=== PATIENT | female | born 1995 | race Caucasian/White ===

== ENCOUNTER 2017-01-10 14:02 | Emergency (ER) | payer BC, OTHER ==
[2017-01-10 14:20] VITALS: BP 111/69
--- NOTE | 2017-01-10 14:45 | UC ---
Palpitation/Dysrhythmia HP - HPI Summary HPI Summary: The patient comes in today for: 1. Fatigue, "a little bit weak," "feeling a fluttering in my chest,": Onset: 2 days ago. Palliative/provocative: If she bends down or stands up, fluttering gets worse. Sudden movement makes it worse. Sitting still, she will get it, but not as bad. Quality: Fluttering. Region: Chest Severity: 0/10 in terms of pain. Time: Flutterings last "just a couple of seconds." Associated symptoms: Chest pain, dyspnea, near-syncope--not present with the flutterings. Previous heart disease: None. Caffeine intake: Usual intake is about 1 small coffee a day. Decongestants: None. Energy drinks: None. * - History of Current Complaint Chief Complaint: UCGeneralIllness Stated Complaint: LIGHT HEADNESS,CHEST FLUTTER Time Seen by Provider: 01/10/17 14:37 Hx Obtained From: Patient Hx Last Menstrual Period: unknown, IUD, Mirena ?: No - Allergy/Home Medications Allergies/Adverse Reactions: Allergies Allergy/AdvReac Type Severity Reaction Status Date / Time No Known Allergies Allergy Verified 01/10/17 14:20 Home Medications: Home Medications Docusate Sodium [Colace] 100 mg PO DAILY PRN 01/10/17 [History Confirmed ] Linaclotide (NF) [Linzess (NF)] 145 mcg PO DAILY PRN 01/10/17 [History Confirmed 01/10/17] Polyethylene Glycol 3350* [Miralax*] 1 packet PO DAILY PRN 01/10/17 [History Confirmed 01/10/17] Rizatriptan (NF) [Maxalt(NF)] 10 mg PO BID 01/10/17 [History Confirmed 01/10/17] Sertraline HCl [Zoloft] 50 mg PO 01/10/17 [History] Spironolactone [Aldactone 50 MG-] 200 mg PO DAILY 01/10/17 [History Confirmed ] Zonisamide 100 mg PO DAILY 01/10/17 [History Confirmed 01/10/17] PMH/Surg Hx/FS Hx/Imm Hx Previously Healthy: No - "on metformin for hypoglcemia," allergies, constipation , hair loss, Endocrine History Of: Denies: Diabetes, Thyroid Disease, Hyperthyroidism, Hypothyroidism, Dyslipidemia Cardiovascular History Of: Denies: Cardiac Disorders, Hypertension, Pacemaker/ICD, Myocardial Infarction , Congestive Heart Failure, Atrial Fibrillation, Deep Vein Thrombosis, Bleeding Disorders Respiratory History Of: Reports: Asthma - She will use xopenex as needed, but Singular usually controls. Denies: COPD, Bronchitis, Pneumonia, Pulmonary Embolism GI/ History Of: Denies: Gastroesophageal Reflux, Ulcer, Gastrointestinal Bleed, Gall Bladder Disease, Kidney Stones, Diverticulitis, Renal Disease, Urosepsis Neurological History Of: Reports: Migraine Denies: TIA, CVA, Dementia, Seizures Psychological History Of: Reports: Anxiety - She is also on Zoloft (50 mg/day) started 5 months ago. Denies: Depression, Bipolar Disorder, Schizophrenia, Post Traumatic Stress Disorder Cancer History Of: Denies: Lung Cancer, Colorectal Cancer - Surgical History Surgical History: Yes Surgery Procedure, Year, and Place: TUBES IN EARS CHILD; POLYP REMOVED FROM THROAT-NO CLIPS, wisdom teeth extraction - Family History Known Family History: Positive: Cardiac Disease, Hypertension - Social History Occupation: Employed Full-time Alcohol Use: Occasionally Substance Use Type: None Smoking Status (MU): Never Smoked Tobacco Review of Systems Constitutional: Negative Skin: Negative Eyes: Negative ENT: Negative Respiratory: Negative Cardiovascular: Palpitations Gastrointestinal: Negative All Other Systems Reviewed And Are Negative: Yes Physical Exam Triage Information Reviewed: Yes Appearance: Well-Appearing, No Pain Distress, Well-Nourished Vital Signs: Initial Vital Signs Temp 98.2 F 01/10/17 14:12 Pulse 78 01/10/17 14:12 Resp 16 01/10/17 14:12 BP 111/69 01/10/17 14:12 Pulse Ox 100 01/10/17 14:12 Vital Signs Reviewed: Yes Eyes: Positive: Conjunctiva Clear. Negative: Discharge ENT: Positive: Hearing grossly normal. Negative: Pharyngeal erythema, Nasal congestion, Nasal drainage, Tonsillar swelling, Tonsillar exudate Dental: Negative: Gross Decay/Caries @, Dental Fracture @ Neck: Positive: Supple, Nontender, No Lymphadenopathy, Other: - No thyromegally. Respiratory: Positive: Chest non-tender, Lungs clear, No respiratory distress, No accessory muscle use. Negative: Crackles, Wheezing Cardiovascular: Positive: RRR, No Murmur, Pulses Normal Abdomen Description: Positive: Nontender, No Organomegaly, Soft. Negative: Distended, Guarding Musculoskeletal: Positive: Strength Intact, ROM Intact Neurological: Positive: Alert, Muscle Tone Normal Psychological: Positive: Age Appropriate Behavior, Consolable Skin: Negative: rashes, breakdown Diagnostics - Laboratory Diagnostic Studies Completed/Ordered: EKG: Rate: 71. Rhythm: sinus. Ectopy: none. Acute changes: None. Palpitations Course/Dx - Course Course Of Treatment: The patient was told of the EKG reading. She was told that I did not see any worrisome findings. She was encouraged to follow up with her primary care provider (or gis technician) if she wanted more of a work up than what we were able to do today. She said that she was not worried. She had called her primary care provider's office and they were not able to get her in, so she called us since they told her that with her complaint, they did not want her to not be seen between now and the time she is able to make in to see them. - Differential Dx/Diagnosis Provider Diagnoses: Palpitations Discharge - Discharge Plan Condition: Stable Disposition: HOME Patient Education Materials: Palpitations (ED) Additional Instructions: Please see your primary care provider in about one to two weeks to see how well you are doing. If you get worse, please be seen sooner.
== END 2017-01-10 15:35 | disposition home or self-care (01) ==
LOC: UCCORT 14:02
DX: R00.2 Palpitations (principal); R53.83 Other fatigue; J45.909 Unspecified asthma, uncomplicated
CPT/HCPCS: 93005; 99211; G0463

== ENCOUNTER 2018-11-20 18:34 | Emergency (ER) | payer OTHER ==
--- OUTSIDE RECORDS SUMMARY | 2018-11-20 20:04 | XMS REPORT | Continuity of Care Document ---
:1995 External Reference #:[id number] Author Name Amy Zhang Care Team Providers Name Role Phone Rekha Lopez MD Care Team Information Kitchen And Bath Designer Unavailable Rekha Lopez MD Primary Care Physician Unavailable Payers Date Identification Numbers Payment Provider Subscriber Effective: 2015 Policy Number: [id number] [employer] PayID: [id number] [address] [place] [address] Effective: 2014 Policy Number: [id number] [facility] [employer] Expires: 2015 PayID: [id number] [address] [address] [place] [address] Effective: 2014 Policy Number: [id number] [facility] [employer] Expires: 2015 PayID: [id number] [address] [address] [place] [address] Effective: 2014 Policy Number: [id number] [facility] [employer] Expires: 2015 PayID: [id number] [address] [address] [place] [address] Effective: 2014 Policy Number: [id number] [facility] [employer] Expires: 2015 PayID: [id number] [address] [address] [place] [address] Advance Directives Description No Information Available Problems Date Description Provider Status Onset: 09/20/2017 Chronic allergic conjunctivitis Yodit Urrutia, Active RPA-C Onset: 08/05/2016 Mild intermittent asthma Yodit Urrutia, Active RPA-C Onset: 10/03/2015 Cow's milk protein sensitivity Yodit Urrutia Active RPA-C Onset: 10/03/2015 Allergic urticaria Yodit Robisonacher, Active RPA-C Onset: 07/11/2015 Moderate persistent asthma, Yodit Bhagatr, Active uncomplicated RPA-C Onset: 07/11/2015 Idiopathic urticaria Yodit Robisonacher, Active RPA-C Onset: 07/11/2015 Posterior rhinorrhea Yodit Robisonacher, Active RPA-C Onset: 07/11/2015 Allergic rhinitis Yodit Robisonacher, Active RPA-C Onset: 07/11/2015 Allergic rhinitis due to pollen Yodit Urrutia, Active RPA-C Family History Description No Information Available Social History Type Date Description Comments Sex Unknown Smoke-Free Home is smoke-free Pets Rabbit Tobacco Use Start: Unknown Never Smoked Cigarettes Tobacco Use Start: Unknown Patient has never smoked Smoking Status Reviewed: 09/20/17 Patient has never smoked Allergies, Adverse Reactions, Alerts Description No Known Drug Allergies Medications Medication Date Status Form Strength Qnty SIG Indications Ordering Provider [facility] Allergy 10/24 Active Capsules 10mg 30cap take 1 s capsule Alondra Tubbs MD by oral route as needed Singulair 10/21 Active Tablets 10mg 90tab Take one s tablet by Alondra Tubbs MD mouth daily in the evening. Epipen 2-Vish 08/08 Active Solution 0.3mg/0.3 2unit as Auto-Inject ML s directed Alondra Tubbs MD Xopenex HFA 07/11 Active Aerosol 45mcg/Act 1inha Inhale 2 J45.40 ler puffs Alondra Tubbs MD every 4 hours as needed Spironolactone Active Tablets 100mg Unknown /0000 Mirena (52 MG) Active IUD 20mcg/24H Unknown /0000 R Doxepin HCL Active Capsules 10mg 1 by Unknown /0000 mouth every day at night Pataday 09/20 Hx Solution 0.2% 1bott Instill H10.45 le one drop Alondra Tubbs MD - into both 10/24 eyes once daily as needed. Advair HFA 10/21 Hx Aerosol 230-21mcg 3unit 2 puff /Act s twice a Alondra Tubbs MD - day 08/05 Xyzal 10/21 Hx Tablets 5mg 90tab Take one s tablet po Alondra Tubbs MD - daily at 10/24 bedtime. Xolair 10/01 Hx Solution 150mg 2unit Inject Rec s 300 mg Alondra Tubbs MD - under the 01/28 every 4 weeks Advair HFA 07/11 Hx Aerosol 230-21mcg 1inha 2 J45.40 /Act ler inhalatio Alondra Tubbs MD - ns bid 10/21 Spironolactone Hx Tablets 100mg 2 by Unknown mouth - every day 01/28 Xyzal Hx Tablets 5mg 30tab 1 tab by s mouth Alondra Tubbs MD - every day 10/21 as needed Singulair Hx Tablets 10mg 30tab 10mg by s mouth Alondra Tubbs MD - daily at 10/21 bedtime Zonisamide Hx Capsules 100mg Unknown / - 09/19 Metformin HCL Hx Tablets 500mg Unknown / - 10/24 Nuvaring Hx Ring 0.12-0.01 Unknown /0000 5mg/24HR - 09/20 Maxalt / Hx Tablets 5mg prn / - 01/28 Optivar Hx Solution 0.05% 1 drop Unknown /0000 both eyes - twice a 01/28 day needed Ventolin HFA Hx Aerosol 108(90Bas inhale 2 Unknown /0000 e) puffs by - mcg/Act inhalatio 08/05 n route every 4 hours as needed for 99 days Alrex Hx Suspension 0.2% Unknown / - 08/05 Finasteride / Hx Unknown / - 09/19 Topiramate /00 Hx Tablets 100mg Unknown / - 10/24 Sertraline HCL Hx Tablets 100mg Take 1 Unknown /0000 Tablet By - Mouth 10/24 Day Medications Administered in Office Medication Date Status Form Strength Qnty SIG Indications Ordering Provider Chemotherpy 10/03/ Administered Injection Christopher Admin 2015 Alondra Tubbs MD Subcutaneous/ Im Non-Hormonal Anti-Neoplast ic Chemotherpy 10/03/ Administered Injection Christopher Admin 2015 Alondra Tubbs MD Subcutaneous/ Im Non-Hormonal Anti-Neoplast ic Injection 09/05/ Administered Injection Christopher Omalizumab 5 2015 Alondra Tubbs MD MG Chemotherpy 09/05/ Administered Injection Christopher Admin 2015 Alondra Tubbs MD Subcutaneous/ Im Non-Hormonal Anti-Neoplast ic Chemotherpy 09/05/ Administered Injection Christopher Admin 2015 Alondra Tubbs MD Subcutaneous/ Im Non-Hormonal Anti-Neoplast ic Chemotherpy 08/08/ Administered Injection Christopher Admin 2014 Alondra Tubbs MD Subcutaneous/ Im Non-Hormonal Anti-Neoplast ic Chemotherpy 08/08/ Administered Injection Christopher Admin 2014 Alondra Tubbs MD Subcutaneous/ Im Non-Hormonal Anti-Neoplast ic Immunizations Description No Information Available Vital Signs Date Vital Result Comment 10/24/2018 3:55pm BP Systolic 96 mmHg BP Diastolic 42 mmHg Height 62 inches 5'2" Weight 127.00 lb BMI (Body Mass Index) 23.2 kg/m2 Heart Rate 66 /min Respiratory Rate 18 /min O2 % BldC Oximetry 99 % 09/20/2017 1:22pm BP Systolic 106 mmHg BP Diastolic 62 mmHg Height 62 inches 5'2" Weight 127.00 lb BMI (Body Mass Index) 23.2 kg/m2 Heart Rate 88 /min Respiratory Rate 16 /min O2 % BldC Oximetry 98 % 08/05/2016 9:14am BP Systolic 118 mmHg BP Diastolic 64 mmHg Height 62 inches 5'2" Weight 121.00 lb BMI (Body Mass Index) 22.1 kg/m2 Heart Rate 100 /min Respiratory Rate 16 /min Body Temperature 97.6 F O2 % BldC Oximetry 100 % 01/29/2016 2:18pm BP Systolic 108 mmHg BP Diastolic 66 mmHg Height 62 inches 5'2" Weight 130.00 lb BMI (Body Mass Index) 23.8 kg/m2 Heart Rate 76 /min Respiratory Rate 14 /min 10/03/2015 1:42pm BP Systolic 100 mmHg BP Diastolic 68 mmHg Height 62 inches 5'2" Weight 125.00 lb BMI (Body Mass Index) 22.9 kg/m2 Heart Rate 76 /min Respiratory Rate 12 /min 07/11/2015 10:43am BP Systolic 124 mmHg BP Diastolic 79 mmHg Height 62 inches 5'2" Weight 130.00 lb BMI (Body Mass Index) 23.8 kg/m2 Heart Rate 93 /min Respiratory Rate 16 /min Results Description No Information Available Procedures Date Code Description Status 09/20/2017 84029 Nitric Oxide Gas Determination Completed 09/20/2017 50951 Bronchodilation Responsiveness Spirometry Pre/Post Completed Bronchodil Adm 08/05/2016 46127 Bronchodilation Responsiveness Spirometry Pre/Post Completed Bronchodil Adm 10/03/2015 02546 Chemotherpy Admin Subcutaneous/Im Non-Hormonal Completed Anti-Neoplastic 10/03/2015 67638 Chemotherpy Admin Subcutaneous/Im Non-Hormonal Completed Anti-Neoplastic 10/03/2015 44396 Spirometry Completed 09/05/2015 85402 Chemotherpy Admin Subcutaneous/Im Non-Hormonal Completed Anti-Neoplastic 09/05/2015 47797 Chemotherpy Admin Subcutaneous/Im Non-Hormonal Completed Anti-Neoplastic 09/05/2015 63616 Spirometry Completed 09/05/2015 36103 Spirometry Completed 08/08/2015 43416 Chemotherpy Admin Subcutaneous/Im Non-Hormonal Completed Anti-Neoplastic 08/08/2015 07219 Chemotherpy Admin Subcutaneous/Im Non-Hormonal Completed Anti-Neoplastic 08/08/2015 34064 Spirometry Completed 07/11/2015 90276 Bronchodilation Responsiveness Spirometry Pre/Post Completed Bronchodil Adm Encounters Type Date Location Provider Dx Diagnosis Office Visit 09/20/2017 Romaine Langford J30.1 Allergic rhinitis due 1:00p Fenstermacher, RPA-C to pollen J30.89 Other allergic rhinitis J45.20 Mild intermittent asthma, uncomplicated H10.45 Other chronic allergic conjunctivitis Office Visit 08/05/2016 9:00a Romaine Langford J45.20 Mild intermittent Fenstermacher, RPA-C asthma, uncomplicated J30.1 Allergic rhinitis due to pollen J30.89 Other allergic rhinitis Office Visit 01/29/2016 2:15p Romaine Langford Fenstermacher, J30.1 Allergic RPA-C rhinitis due to pollen J30.89 Other allergic rhinitis L50.0 Allergic urticaria J45.40 Moderate persistent asthma, uncomplicated Office Visit 10/03/2015 1:30p [place]arie Langford [place], J30.1 Allergic rhinitis RPA-C due to pollen J30.89 Other allergic rhinitis R09.82 Postnasal drip L50.0 Allergic urticaria J45.40 Moderate persistent asthma, uncomplicated Office Visit 07/11/2015 10:45a Jessica Langford [place], J30.1 Allergic rhinitis RPA-C due to pollen J30.89 Other allergic rhinitis J45.40 Moderate persistent asthma, uncomplicated R09.82 Postnasal drip L50.1 Idiopathic urticaria Plan of Treatment 09/20/2017 - Yodit MerrillRupinder Urrutia, RPA-CJ30.1 Allergic rhinitis due to pollenComments:Continue Xyzal as prescribed. I have suggested that Ritika takes Claritin in addition to Xyzal for breakthrough symptoms during the summer months. She does not tolerate nasal steroids and is not a good candidate for restarting immunotherapy due to history of multiple systemic allergic reactions.Follow up:1 year.J30.89 Other allergic rhinitisComments:Continue environmental controls for house dust and dust mites.Follow up:1 year.J45.20 Mild intermittent asthma, uncomplicatedComments:Asthma has been stable. Today's PFT is within normal limits. Exhaled nitric oxide level is 14ppb. Continue Singulair as prescribed. Continue Xopenex as needed for breakthrough asthma symptoms.Follow up:1 year - w/PFT and NIOXH10.45 Other chronic allergic conjunctivitisNew Medication:Pataday 0.2 % - Instill one drop into both eyes once daily as needed.Comments:I will renew prescription for Pataday eye drops to be used as needed for breakthrough eye allergy symptomsFollow up:1 year.
--- OUTSIDE RECORDS SUMMARY | 2018-11-20 20:04 | XMS REPORT | Continuity of Care Document ---
:1995 External Reference #:[id number] Author Name ALEJANDRA Santos Address [address] [place] [address] Care Team Providers Name Role Phone Melissa Ruano Care Team Information Top Ironer Unavailable Melissa Ruano Primary Care Physician Unavailable Payers Date Identification Numbers Payment Provider Subscriber Effective: 2015 Policy Number: [id number] [facility] Sesar [employer] Group Number: [id number] [address] PayID: [id number] [place] [address] Advance Directives Description No Information Available Problems Date Description Provider Status Onset: 05/14/2015 Migraine Rekha Lopez M.D. Active Onset: 05/15/2015 Impaired glucose tolerance test Rekha Lopez M.D. Active Onset: 05/15/2015 Alopecia Rekha Lopez M.D. Active Onset: 05/15/2015 Abnormal estradiol Rekha Lopez M.D. Active Onset: 05/15/2015 Decreased testosterone level Rekha Lopez M.D. Active Onset: 05/15/2015 Asthma Rekha Lopez M.D. Active Onset: 05/15/2015 Allergic rhinitis Rekha Lopez M.D. Active Onset: 04/12/2013 Malaise and fatigue Melissa Ruano M.D. Resolved Resolved: 05/14/2015 Onset: 04/12/2013 Headache Melissa Ruano M.D. Resolved Resolved: 05/14/2015 Family History Description No Information Available Social History Type Date Description Comments Sex Unknown Education part time student [employer]. nursing Lives With Mother Lives With Stepfather Lives With and step sister. 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 Tobacco Use Start: Unknown Never Smoked Cigarettes Tobacco Use Start: Unknown Patient has never smoked Exercise Type/Frequency Exercises regularly Exercise Type/Frequency [employer] - 4-5 times weekly. Allergies, Adverse Reactions, Alerts Description No Known Drug Allergies Medications Medication Date Status Form Strength Qnty SIG Indications Ordering Provider Wellbutrin SR 10/26 Active Tablets ER 100mg 90tab 1 by mouth F41.1 12HR s every day Kelly, [employer] Mirena (52 MG) 04/14 Active IUD 20mcg/24H 2015 R Kelly, [employer] Butalbital/Acet 04/14 Active Capsules 50-300-40 240ca 1-2 by aminophen/Caffe /2016 mg ps mouth Kelly, ine every 6 [employer] hours Naproxen 04/14 Active Tablets 500mg 60tab 1 by mouth R51 s twice a Kelly, day with [employer] food Lorazepam 04/14 Active Tablets 0.5mg 60tab 1 by mouth s twice a Kelly, day as [employer] needed anxiety Dulcolax 11/03 Active Suppository 10mg 24uni 1-2 per K59.01 ts rectum Kelly, daily if [employer] needed for severe constipati on Ondansetron HCL 09/01 Active Tablets 4mg 60tab 1 by mouth R11.0 s every 8 Kelly, hours as [employer] needed nausea Xyzal Active Tablets 5mg 90tab 1 po qd Unknown s Singulair Active Tablets 10mg 1 by mouth Unknown every day Rizatriptan Active Tablets 10mg 1 by mouth Unknown Benzo at beginning of headache. may repeat in two hours Xopenex HFA Active Aerosol 45mcg/Act 2 puffs Unknown four times a day as needed Spironolactone Active Tablets 100mg 180ta 1 tab by Latia Headley / bs mouth Marlon, twice a [employer] day Doxepin HCL Active Capsules 10mg take 1 Unknown /0000 capsules by mouth at bedtime Lamictal 02/10 Hx Tablets 25mg 60tab 2 by mouth F34.1 s every day [facility], - [facility] 10/26 Augmentin 11/18 Hx Tablets 875-125mg 20tab 1 po bid 462 s with Kelly, - yogurt or [facility] 02/10 kefir. Sertraline HCL 11/02 Hx Tablets 25mg 90tab 1 by mouth F41.1 s every day Kelly, - [employer] 02/10 F34.1 Cheratussin ac 11/02/2017 Hx Syrup 100-10mg/5ML 118ml 5-10 mL by J06.9 Praveena - mouth every [facility], 02/10/2018 night at [facility] bedtime as needed cough Diflucan 10/29/2017 Hx Tablets 200mg 2tabs take one by B37.3 Latia C. - mouth at [place], 11/02/2017 first signs [employer] of yeast infection, repeat dose after 4 days. Sertraline HCL 04/14/2017 Hx Tablets 100mg 90tabs 1 by mouth F41.1 Praveena - every day [facility], 11/02/2017 [employer] Linzess 09/01/2016 Hx Capsules 145mcg 1 po daily, K59.01 Praveena - samples [facility], 11/02/2017 [employer] Sertraline HCL 07/28/2016 Hx Tablets 50mg 90tabs 1 by mouth F41.1 Praveena - every day Kelly, 04/14/2017 [employer] Macrobid 02/17/2016 Hx Capsules 100mg 10caps 1 tab by Praveena - mouth twice [facility], 07/28/2016 a day x [employer] 5days Fluconazole 01/07/2016 Hx Tablets 150mg 2tabs 1 by mouth N77.1 Maria Guadalupe - ; decemberigne, 01/10/2016 repeat in Afnp-C 5-7 days Terconazole 01/07/2016 Hx Cream 0.4% 45gm 1 N77.1 Maria Guadalupe - applicatorf oYvanny, 01/14/2016 ul hs x 7 [facility] nights Macrodantin 12/23/2015 Hx Capsules 100mg 10caps 1 by mouth N39.0 Rekha - twice a day [place], 01/07/2016 x 5 days M.D. Macrobid 12/23/2015 Hx Capsules 100mg 10caps 1 tab by Rekha - mouth twice [place], 01/07/2016 a day x M.D. 5days Triamcinolone 12/03/2015 Hx Cream 0.5% samples, R21 Praveena Acetonide - twice a day Kelly, 07/28/2016 [employer] Macrodantin 10/14/2015 Hx Capsules 100mg 10caps 1 by mouth N39.0 Praveena - twice a day Kelly, 11/19/2015 x 5 days [employer] Pyridium 10/14/2015 Hx Tablets 200mg 30tabs 1 by mouth N39.0 Praveena - three times Kelly, 11/19/2015 a day [employer] Macrodantin 09/17/2015 Hx Capsules 100mg 10caps 1 by mouth N39.0 Praveena - twice a day [facility], 10/07/2015 x 5 days [employer] Diflucan 07/22/2015 Hx Tablets 150mg 1tabs 1 by mouth B37.3 Dominique - x1 [facility], 07/23/2015 Afnp-C Nuvaring 06/02/2015 Hx Ring 0.12-0.015mg/ 12units use as Z30.09 Ronny Faulkner - 24HR directed [place], 11/03/2016 M.D. Metformin HCL 05/15/2015 Hx Tablets 500mg 90tabs 1 by mouth R73.02 Ronny Faulkner ER - ER 24HR tab daily [place], 10/26/2018 M.D. Must Eat Small 04/12/2013 Hx 780.79 Melissa Jacques Amounts Of - Bindu, Protein During 12/03/2015 M.D. The Day. Augmentin 10/12/2011 Hx Tablets 875-125mg 20tabs 1 po bid 462 Melissa Jacques - with yogurt Bindu, 11/12/2011 or kefir. M.D. Ventolin HFA 10/06/2011 Hx Aerosol 108(90Base) 1units 2 puffs Abena - mcg/ac qd-qid Harmeet 07/17/2015 [employer] Flexeril 10/06/2011 Hx Tablets 10mg 30tabs 1 po q hs 339.10 Abena - prn muscle Harmeet, 01/05/2013 spasm [employer] Fioricet 10/06/2011 Hx Tablets 50-325-40mg 20tabs 1 qd prn 339.10 Abena - headache [place], 01/05/2013 [employer] Physical 10/06/2011 Hx evaluate 339.10 Abena Therapy - and treat Harmeet, 04/18/2012 cervical [employer] strain Nuvaring Hx Ring 0.12-0.015mg/ 1units use as Melissa Jacques - 24HR directed Bindu, 05/15/2015 Oskar Doryx Hx Tablets 150mg Unknown - DR 04/18/2012 Spironolactone Hx Tablets 50mg 4 po qd Unknown - 01/07/2016 Clarinex Hx Tablets 5mg 7tabs 1 po qd Unknown - 04/12/2013 Amitriptyline Hx Tablets 25mg 1 po q hs Unknown HCL - 05/15/2015 Dulera Hx Aerosol 200-5mcg/Act sample 2 puff bid Unknown - 05/15/2015 Qnasl Hx Aerosol 80mcg/Act 3units 1spray/nost Unknown - ril qd-bid 05/15/2015 Zonisamide Hx Capsules 100mg 1 po qd Unknown - 11/02/2017 Jolessa Hx Tablets 0.15-0.03mg use as Unknown - instructed 09/17/2015 by prescriber Adv Diskus Hx Aerosol 500-50mcg/Dos inhale one Unknown - e dose by 08/31/2016 mouth twice daily Xolair Hx Solution 150mg 2 shots Unknown - Rec once a 07/28/2016 month- Dr. Tubbs Propecia Hx Tablets 1mg once daily Unknown - 08/31/2016 Ibuprofen Hx Capsules 200mg as needed Unknown - 11/02/2017 Topiramate Hx Tablets 100mg qd po Unknown - 10/26/2018 Medications Administered in Office Medication Date Status Form Strength Qnty SIG Indications Ordering Provider Brief Administered Injection Praveena Emotional/Beh 018 ALEJANDRA Mendoza av Assessment W/ Scoring Doc Per Standard Inst Brief Administered Injection Praveena Emotional/Beh 017 TU MendozaP av Assessment W/ Scoring Doc Per Standard Inst Immunizations CPT Code Status Date Vaccine Lot # [id number] Given 11/03/2016 Tdap Tetanus, W Pertussis [id number] 85002 Given 06/16/2016 Influenza Vac, [place] [address] Given 05/15/2015 Influenza Vac, Quadrivalent, Slit Virus, Im [id number] 20932 Given 07/16/2013 DO Not Use Split Influenza Virus Vaccine [id number] 12305 Given 05/08/2010 DO Not Use Split Influenza Virus Vaccine 58697 Given 04/28/2009 (IPV) Inactive Poliovirus Vaccine 74418 Given 10/28/2008 Gardasil vacine typs 6,11,16,18 3 dose schedule 90285 Given 10/28/2008 Hep A Ped 2-Dose Immunization 13717 Given 06/19/2008 Gardasil vacine typs 6,11,16,18 3 dose schedule 11146 Given 04/19/2008 Meningococcal Conjugate Vaccine,Serogroups For Intramuscular Use 24577 Given 04/19/2008 Varicella (Chicken Pox) Immunization 18146 Given 04/19/2008 Gardasil vacine typs 6,11,16,18 3 dose schedule 59533 Given 04/19/2008 Hep A Ped 2-Dose Immunization 80242 Given 02/07/2007 Tdap Tetanus, W Pertussis 73620 Given 05/20/1998 DTaP Immunization 55026 Given 04/24/1998 MMR Virus Immunization 31770 Given 01/28/1996 Varicella (Chicken Pox) Immunization 23453 Given 12/16/1995 DTaP Immunization 92135 Given 09/02/1995 MMR Virus Immunization 07804 Given 09/02/1995 Hib PRP-T Conjugate 4 Dose Schedule 03979 Given 1994 Hepatitis B Immunization, -19 Years 52319 Given 1994 (IPV) Inactive Poliovirus Vaccine 93138 Given 1994 DTaP Immunization 43686 Given 1994 Hib PRP-T Conjugate 4 Dose Schedule 00821 Given 1994 (IPV) Inactive Poliovirus Vaccine 12515 Given 1994 DTaP Immunization 41930 Given 1994 Hib PRP-T Conjugate 4 Dose Schedule 32003 Given 1994 Hepatitis B Immunization, -19 Years 89458 Given 1994 (IPV) Inactive Poliovirus Vaccine 13524 Given 1994 DTaP Immunization 30295 Given 1994 Hib PRP-T Conjugate 4 Dose Schedule 67587 Given 1994 Hepatitis B Immunization, -19 Years Vital Signs Date Vital Result Comment 10/26/2018 8:55am BP Systolic 100 mmHg BP Diastolic 70 mmHg Heart Rate 70 /min Body Temperature 97.5 F Respiratory Rate 20 /min Weight 135.00 lb 02/10/2018 4:17pm BP Systolic 110 mmHg BP Diastolic 64 mmHg Heart Rate 64 /min Body Temperature 98.7 F Respiratory Rate 16 /min Height 62 inches 5'2" Weight 132.00 lb BMI (Body Mass Index) 24.1 kg/m2 11/02/2017 9:25am BP Systolic 108 mmHg BP Diastolic 72 mmHg Heart Rate 68 /min Body Temperature 97.5 F Respiratory Rate 16 /min Height 62 inches 5'2" Weight 130.00 lb BMI (Body Mass Index) 23.8 kg/m2 04/14/2017 4:13pm BP Systolic 122 mmHg BP Diastolic 80 mmHg Heart Rate 68 /min Body Temperature 98.2 F Height 62 inches 5'2" Weight 125.00 lb BMI (Body Mass Index) 22.9 kg/m2 11/03/2016 9:01am BP Systolic 100 mmHg BP Diastolic 60 mmHg Heart Rate 68 /min Body Temperature 97.8 F Respiratory Rate 16 /min Height 62 inches 5'2" Weight 122.38 lb BMI (Body Mass Index) 22.4 kg/m2 09/01/2016 8:28am BP Systolic 94 mmHg BP Diastolic 72 mmHg Heart Rate 84 /min Body Temperature 97.7 F Height 62 inches 5'2" Weight 119.50 lb BMI (Body Mass Index) 21.9 kg/m2 07/28/2016 3:24pm BP Systolic 100 mmHg BP Diastolic 60 mmHg Heart Rate 76 /min Body Temperature 98.1 F Respiratory Rate 16 /min Height 62 inches 5'2" Weight 122.00 lb BMI (Body Mass Index) 22.3 kg/m2 01/07/2016 11:25am BP Systolic 112 mmHg BP Diastolic 70 mmHg Heart Rate 72 /min Body Temperature 98.6 F Respiratory Rate 16 /min Height 62 inches 5'2" Weight 129.00 lb BMI (Body Mass Index) 23.6 kg/m2 12/03/2015 1:29pm BP Systolic 110 mmHg BP Diastolic 70 mmHg Heart Rate 80 /min Body Temperature 97.8 F Respiratory Rate 16 /min Height 62 inches 5'2" Weight 127.00 lb BMI (Body Mass Index) 23.2 kg/m2 11/19/2015 9:22am BP Systolic 110 mmHg BP Diastolic 60 mmHg Heart Rate 76 /min Body Temperature 97.7 F Respiratory Rate 16 /min Height 62 inches 5'2" Weight 129.25 lb BMI (Body Mass Index) 23.6 kg/m2 10/14/2015 11:33am BP Systolic 100 mmHg BP Diastolic 70 mmHg Heart Rate 68 /min Body Temperature 98.0 F Respiratory Rate 16 /min Height 62 inches 5'2" Weight 129.00 lb BMI (Body Mass Index) 23.6 kg/m2 10/07/2015 2:54pm BP Systolic 118 mmHg BP Diastolic 74 mmHg Heart Rate 64 /min Body Temperature 98.3 F Respiratory Rate 16 /min Height 62 inches 5'2" Weight 131.00 lb BMI (Body Mass Index) 24.0 kg/m2 09/17/2015 1:19pm BP Systolic 110 mmHg BP Diastolic 70 mmHg Heart Rate 90 /min Body Temperature 97.3 F Respiratory Rate 16 /min Height 62 inches 5'2" Weight 129.38 lb BMI (Body Mass Index) 23.7 kg/m2 07/22/2015 3:03pm BP Systolic 110 mmHg BP Diastolic 64 mmHg Heart Rate 72 /min Body Temperature 98.3 F Respiratory Rate 16 /min Height 62 inches 5'2" Weight 130.00 lb BMI (Body Mass Index) 23.8 kg/m2 07/17/2015 10:18am BP Systolic 120 mmHg BP Diastolic 74 mmHg Heart Rate 74 /min Body Temperature 98.1 F Respiratory Rate 16 /min Height 62 inches 5'2" Weight 130.00 lb BMI (Body Mass Index) 23.8 kg/m2 06/02/2015 2:31pm BP Systolic 94 mmHg BP Diastolic 64 mmHg Heart Rate 72 /min Body Temperature 98.6 F Respiratory Rate 16 /min Height 62 inches 5'2" Weight 130.00 lb BMI (Body Mass Index) 23.8 kg/m2 05/15/2015 4:55pm BP Systolic 110 mmHg BP Diastolic 60 mmHg Heart Rate 76 /min Respiratory Rate 16 /min Height 62 inches 5'2" Weight 131.50 lb BMI (Body Mass Index) 24.0 kg/m2 04/12/2013 9:53am BP Systolic 100 mmHg BP Diastolic 70 mmHg Heart Rate 88 /min Body Temperature 98.3 F Respiratory Rate 16 /min Height 62 inches 5'2" Weight 127.00 lb BMI (Body Mass Index) 23.2 kg/m2 01/05/2013 12:56pm BP Systolic 120 mmHg BP Diastolic 70 mmHg Heart Rate 84 /min Body Temperature 98.7 F Respiratory Rate 18 /min Height 62 inches 5'2" Weight 127.00 lb BMI (Body Mass Index) 23.2 kg/m2 Body Mass Index Percentile 68 % Weight Percentile 52nd Height Percentile 18 % 05/31/2012 2:10pm BP Systolic 110 mmHg BP Diastolic 70 mmHg Heart Rate 76 /min Body Temperature 98.0 F Respiratory Rate 18 /min Height 62 inches 5'2" Weight 132.00 lb BMI (Body Mass Index) 24.1 kg/m2 Body Mass Index Percentile 76 % Weight Percentile 63rd Height Percentile 19 % 04/18/2012 3:30pm BP Systolic 110 mmHg BP Diastolic 62 mmHg Heart Rate 78 /min Body Temperature 99.0 F Height 62 inches 5'2" Weight 128.00 lb BMI (Body Mass Index) 23.4 kg/m2 Body Mass Index Percentile 71 % Weight Percentile 57th Height Percentile 19 % 12/15/2011 1:26pm BP Systolic 110 mmHg BP Diastolic 80 mmHg Heart Rate 84 /min Body Temperature 98.8 F Height 62 inches 5'2" Weight 129.00 lb BMI (Body Mass Index) 23.6 kg/m2 Body Mass Index Percentile 74 % Weight Percentile 60th Height Percentile 19 % 11/12/2011 10:55am BP Systolic 96 mmHg BP Diastolic 60 mmHg Heart Rate 78 /min Body Temperature 98.9 F Respiratory Rate 20 /min Height 62 inches 5'2" Weight 128.00 lb BMI (Body Mass Index) 23.4 kg/m2 Body Mass Index Percentile 73 % Weight Percentile 59th Height Percentile 19 % 10/12/2011 4:05pm BP Systolic 90 mmHg BP Diastolic 70 mmHg Heart Rate 60 /min Body Temperature 98.0 F Height 62 inches 5'2" Weight 130.00 lb BMI (Body Mass Index) 23.8 kg/m2 Body Mass Index Percentile 76 % Weight Percentile 63rd Height Percentile 19 % 10/06/2011 3:05pm BP Systolic 100 mmHg BP Diastolic 70 mmHg Heart Rate 60 /min Body Temperature 99.0 F Height 62 inches 5'2" Weight 130.00 lb BMI (Body Mass Index) 23.8 kg/m2 Body Mass Index Percentile 76 % Weight Percentile 63rd Height Percentile 19 % Results Test Date Facility Test Result H/L Range Note Laboratory test 10/26/2018 [facility] ([facility]) Free T4 <pending> 0.75- 1.54 finding TSH <pending> 0.5-5.0 Laboratory test 10/26/2018 [facility] HIV 1&2 Antibody <pending> Negative finding (607)- - Screen (Fma) Laboratory test 10/26/2018 [facility] Rapid Plasma <pending> finding [address] [facility] Reagin (RPR) [place] [address] Test (607)- - Laboratory test 10/26/2018 [facility] Antinuclear <pending> finding [address] [facility] Antibodies (Parvin), [place] [address] By Ifa (604)- - Vaginitis Plus 11/02/2017 [facility] Atopobium vaginae Low - 0 Score 1 Nuswab [address] [place] [address] (602)- - Bvab 2 Low - 0 Score Megasphaera 1 Low - 0 Score 2 Sehrry albicans, Claudine Positive Abnormal Negative Sherry glabrata, Claudine Negative Negative 3 Trich vag by Claudine Negative Negative Chlamydia trachomatis, Claudine Negative Negative Neisseria gonorrhoeae, Claudine Negative Negative Laboratory test 11/02/2017 [facility] RPR Non Reactive Non Reactive finding [address] [place] [address] (607)- - Hepatitis Panel 11/02/2017 [facility] Hep A Ab, Positive Abnormal Negative (5) [address] [facility] [place] [address] (607)- - HBsAg Screen Negative Negative Hep B Core Ab, Tot Negative Negative Hep B Surface Ab, Qual Non Reactive 4 Hep C Virus Ab <0.1 s/coratio 0.0-0.9 5 Laboratory test 11/02/2017 [facility] HIV 1&2 Antibody neg Negative finding (607)- - Screen (Fma) Ua - Micro ([facility]ma) 01/07/2016 [facility] Medicine Appearance yellow (607)- - Color clear Glucose, Urine (Fma/CMC/CTX) neg Bilirubin neg Ketones trace SP Grav 1.015 Blood neg PH 5.5 Protein neg Urobil 0.2 Nitrite neg Leukocytes (Fma/CMC/Centrex) trace Hyaline - /Lpf Granular - /Lpf WBC (Fma,Centrex) 3-5 RBC - Mucus - /Lpf Epith few /Lpf Bacteria trace /Hpf Amorphous - /Lpf Crystals, Fluid (Fma/CMC/CTX) - Z#Comments - Laboratory test 11/19/2015 [facility] Dhea, Serum 165 ng/dL 31-701 6, 7 finding [address] [place] [address] (607)- - Estradiol <5.0 pg/mL 8 Luteinizing Hormone(LH), S 1.9 mIU/mL 9 Laboratory test 11/19/2015 [facility] PDF [id number] SEE IMAGE finding [address] [place] [address] (607)- - FSH, Serum 11/19/2015 [facility] FSH 3.5 mIU/mL 10 [address] [place] [address] (607)- - Laboratory test 11/19/2015 [facility] (a) Testosterone 44.0 ng/dL 9.0-56 finding .0 TSH 3.36 mIU/L 0.50-6.00 Free T4 1.07 ng/dL 0.75-1.54 Pap W/RFX High Risk 11/19/2015 [facility] Diagn See Comment: 11 HPV [address] [place] [address] (603)- - Adeq See Comment: 12 [email or web address] See Comment: 13 Perfor See Comment: 14 Comm . Note See Comment: 15 Iglbp See Comment: 16 Reflex See Comment: 17 Laboratory test 11/19/2015 [facility] Hemoglobin A1c 4.9 % 4.1-5.7 finding (607)- - (Fma) Complete Blood 11/07/2015 [facility] ([facility]) WBC 8.4 3.6-9.6 Count x10^3/UL RBC 4.64 x10^6/UL 3.90-5.70 HGB 14.8 g/dL 12.1-17.2 HCT 43 % 36-50 MCV 93.0 fL 82.2-97.4 MCH 31.8 pg 27.6-33.3 MCHC 34.3 g/dL 33.0-35.5 RDW 13.2 % 11.6-13.7 PLT 485 x10^3/UL High 150-400 18 MPV 6.7 fL Low 7.4-10.4 Gran # 5.2 x10^3/UL 1.5-7.2 Lymph# 3.0 x10^3/UL 0.7-4.9 Wilkin# 0.2 x10^3/UL 0.1-0.9 Gran % 60.9 % 42.2-75.2 Lymph % 36.0 % 20.5-51.1 Wilkin% 3.1 % 1.7-9.3 Ua - Non Micro (a) 11/07/2015 [facility] Medicine Appearance clear (607)- - Color yellow Glucose, Urine (a/[facility]/CTX) neg Bilirubin neg Ketones neg SP Grav >=1.030 Blood neg PH 5.5 Protein neg Urobil 0.2 eu/dl Nitrite neg Leukocytes ([facility]/Centrex) neg Comprehensive Metabolic 11/07/2015 [facility] ([facility]) Sodium 135 mEq/L 134-149 Prof Potassium 4.5 mEq/L 3.6-5.5 Chloride 103 mEq/L 94-112 Carbon Dioxide 24 mEq/L 21-32 Glucose 82 mg/dL 70-105 BUN 11 mg/dL 6-26 Creatinine 0.8 mg/dL 0.6-1.4 BUN/Creat Ratio 13.8 CALC 8.0-36.0 Calcium 10.0 mg/dL 8.6-10.2 Total Protein 8.2 g/dL 6.4-8.3 Albumin 4.6 g/dL 3.8-5.5 Globulin 3.6 g/dL 2.0-4.8 A/G Ratio 1.3 CALC 0.6-2.3 Alk. Phosphatase 50 U/L 30-110 Alt (SGPT) 11 U/L 7-35 Ast (Sgot) 17 U/L 5-34 Total Bilirubin 0.3 mg/dL 0.2-1.3 GFR Non- >60 ml/min/1.73m^ >=60 GFR >60 ml/min/1.73m^ >=60 Lipid Profile 11/07/2015 [facility] ([facility]) Cholesterol 250 mg/dL High 120-200 Triglycerides 125 mg/dL 30-200 HDL Cholesterol 97 mg/dL High 30-85 LDL (Calculated) 128 CALC 0-129 VLDL Cholesterol 25 mg/dL 0-50 HDL Risk Factor 2.6 CALC 0.0-4.4 Ua - Non Micro (Fma) 10/14/2015 [facility] Medicine Appearance clear (607)- - Color yellow Glucose, Urine (Fma/CMC/CTX) neg Bilirubin neg Ketones trace # SP Grav >=1.030 Blood large # PH 5.5 Protein 30 mg/dL # Urobil 0.2 e.u./dl Nitrite neg Leukocytes (Fma/CMC/Centrex) trace # Urine Culture 09/17/2015 [facility] Urine Culture, Final report Abnormal , 20 Routine [address] [facility] [place] [address] (607)- - Result 1 Escherichia coli Abnormal 21 Antimicrobial Susceptibility See Comment: 22 Ua - Micro (Fma) 09/17/2015 [facility] Medicine Appearance CLEAR (607)- - Color YELLOW Glucose, Urine (Fma/CMC/CTX) NEG Bilirubin NEG Ketones NEG SP Grav 1.010 Blood TRACE-LYSED # PH 5.5 Protein NEG Urobil 0.2 Nitrite NEG Leukocytes (Fma/CMC/Centrex) TRACE # Hyaline - /Lpf Granular - /Lpf WBC (Fma,Centrex) 15-20 # RBC 1-2 # Mucus - /Lpf Epith RARE /Lpf # Bacteria RARE /Hpf # Amorphous - /Lpf Crystals, Fluid (Fma/CMC/CTX) - Z#Comments - Laboratory test 07/22/2015 [facility] Wet Prep Some hyphae finding (607)- - (Fma,CMC,CX) Chlamydia/GC 07/22/2015 [facility] Chlamydia Negative Negative 23, 24 Amplification [address] [facility] trachomatis, [place] [address] (607)- - Neisseria gonorrhoeae, Claudine Negative Negative 25 Please note: See Comment: 26 Vaginitis/Vaginosis Dna 07/22/2015 [facility] Sherry Negative Negative [address] [place] [address] (607)- - Gardnerella vaginalis Negative Negative 28 Trichomonas vaginalis Negative Negative 29 Laboratory test 10/09/2014 [facility] see scanned finding Test CBC Electronic 01/05/2013 [facility] WBC 8.5 3.6-9.6 (Fma) (607)- - RBC 4.53 3.90-5.70 Hemoglobin (Fma/CMC/CTX) 13.6 g/dL 12.1 - 17.2 Hematocrit (Fma/CMC/CTX) 40.5 % 36.1 - 50.3 Platelets 380 10^3/ul 150-400 Lymph% 32.1 20.5-51.1 Mixed% 6.0 Neutrophils % 61.9 Mean Corpuscular Vol 89 82.2-97.4 Mean Corpuscular Hemoglobin 30.0 27.6-33.3 Mean Corpuscular Hemo Concen 33.5 32.0-36.0 RDW 11.6 11.6-13.7 Mean Platelet Volume 6.7 6.5-11.0 Laboratory test finding 01/05/2013 [facility] ([facility]) TSH 2.96 mIU/L 0.50-6.00 Comprehensive Metabolic 01/05/2013 [facility] ([facility]) Albumin 4.6 g/dL 3.8-5.5 Prof Alk. Phos. 60 U/L 30-110 Alt (SGPT) 10 U/L 7-35 Ast (Sgot) 19 U/L 5-34 BUN 13 mg/dL 6-26 Calcium 9.7 mg/dL 8.6-10.2 Chloride 100 mEq/L 94-112 Creatinine 0.8 mg/dL 0.6-1.4 Carbon Dioxide 24 mEq/L 21-32 Glucose 86 mg/dL 70-105 Sodium 137 mEq/L 134-149 Total Bilirubin 0.4 mg/dL 0.2-1.3 Total Protein 7.3 g/dL 6.3-8.1 Potassium 4.0 mEq/L 3.6-5.5 Globulin 2.7 g/dL 2.0-4.8 A/G Ratio 1.7 Calc 0.6-2.3 BUN/Creat Ratio 16.2 Calc 8.0-36.0 Throat-Beta Strept 11/19/2012 [facility] Throat Beta Strep (SEE NOTE) 30 Culture Laboratory test 08/03/2012 [facility] Beta HCG < 2.1 0.0-5. 31 finding Quantitative MIU/ML 0 Laboratory test 05/31/2012 [facility] Glucose, Serum 73 mg/dL 70- 105 finding (607)- - (Fma/CMC/CTX) Comprehensive 12/15/2011 [facility] ([facility]) Albumin 4.7 g/dL 3.8-5. Metabolic Prof 5 Alk. Phos. 66 U/L 30-110 Alt (SGPT) 12 U/L 7-35 Ast (Sgot) 18 U/L 5-34 BUN 10 mg/dL 6-26 Calcium 10.1 mg/dL 8.6-10.2 Chloride 96 mEq/L 94-112 Creatinine 0.7 mg/dL 0.6-1.4 Carbon Dioxide 24 mEq/L 21-32 Glucose 141 mg/dL High 70-105 32 Sodium 136 mEq/L 134-149 Total Bilirubin 0.2 mg/dL 0.2-1.3 Total Protein 7.7 g/dL 6.3-8.1 Potassium 3.7 mEq/L 3.6-5.5 Globulin 3.0 g/dL 2.0-4.8 A/G Ratio 1.6 Calc 0.6-2.2 BUN/Creat Ratio 13.8 Calc 8.0-36.0 CBC Electronic ([facility]) 12/15/2011 [facility] WBC 7.7 3.6-9.6 (607)- - RBC 4.40 3.90-5.70 Hemoglobin (Fma/CMC/CTX) 13.6 g/dL 12.1 - 17.2 Hematocrit (Fma/CMC/CTX) 39.1 % 36.1 - 50.3 Platelets 350 10^3/ul 150-400 Lymph% 39.4 20.5-51.1 Mixed% 10.2 Neutrophils % 50.4 Mean Corpuscular Vol 88.9 82.2-97.4 Mean Corpuscular Hemoglobin 30.9 27.6-33.3 Mean Corpuscular Hemo Concen 34.8 32.0-36.0 RDW 12.2 11.6-13.7 Mean Platelet Volume 9.5 6.5-11.0 Ua - Micro ([facility]) 12/15/2011 [place] [facility] Appearance clear (607)- - Color yellow Glucose neg Bilirubin neg Ketones neg SP Grav 1.015 Blood neg PH 6.0 Protein neg Urobil 0.2 Nitrite neg Leukocytes (Fma/CMC/Centrex) neg Hyaline - /Lpf Granular - /Lpf WBC (a,Centrex) 2-4 # RBC - Mucus small amt /Lpf # Epith occass /Lpf # Bacteria trace /Hpf # Amorphous - /Lpf Crystals, Fluid (Fma/CMC/CTX) - Z#Comments - Laboratory test 11/12/2011 Frost Saida ([facility]) Free T3 3.40 pg/mL 2.00- 4.90 finding Free T4 1.28 ng/dL 0.75-1.54 TSH 3.56 mIU/L 0.50-6.00 Basic Metabolic Profile 11/12/2011 Frost Saida ([facility]) BUN 12 mg/dL 6- 26 Calcium 9.9 mg/dL 8.6-10.2 Chloride 97 mEq/L 94-112 Creatinine 0.8 mg/dL 0.6-1.4 Carbon Dioxide 24 mEq/L 21-32 Glucose 79 mg/dL 70-105 Sodium 135 mEq/L 134-149 Potassium 4.1 mEq/L 3.6-5.5 BUN/Creat Ratio 15.3 Calc 8.0-36.0 Laboratory test 11/12/2011 [facility] Sed Rate 4MM finding (607)- - (a/CMC/Centrex) CBC Electronic 11/12/2011 [facility] WBC 6.0 3.6-9.6 (a) (607)- - RBC 4.72 3.90-5.70 Hemoglobin (Fma/CMC/CTX) 14.2 g/dL 12.1 - 17.2 Hematocrit (Fma/CMC/CTX) 42.1 % 36.1 - 50.3 Platelets 376 10^3/ul 150-400 Lymph% 42.6 20.5-51.1 Mixed% 6.2 Neutrophils % 51.2 Mean Corpuscular Vol 89 82.2-97.4 Mean Corpuscular Hemoglobin 30.0 27.6-33.3 Mean Corpuscular Hemo Concen 33.7 32.0-36.0 RDW 12.2 11.6-13.7 Mean Platelet Volume 7.0 6.5-11.0 1 2 ssts 2 Calculate total score by adding the 3 individual bacterial vaginosis (BV) marker scores together. Total score is interpreted as follows: Total score 0-1: Indicates the absence of BV. Total score 2: Indeterminate for BV. Additional clinical data should be evaluated to establish a diagnosis. Total score 3-6: Indicates the presence of BV. This test was developed and its performance characteristics determined by [employer]. It has not been cleared or approved by the Food and Drug Administration. The FDA has determined that such clearance or approval is not necessary. 3 This test was developed and its performance characteristics determined by [employer]. It has not been cleared or approved by the Food and Drug Administration. The FDA has determined that such clearance or approval is not necessary. 4 Non Reactive: Inconsistent with immunity, less than 10 mIU/mL Reactive: Consistent with immunity, greater than 9.9 mIU/mL Verified by repeat analysis 5 Negative: < 0.8 Indeterminate: 0.8 - 0.9 Positive: > 0.9 The CDC recommends that a positive HCV antibody result be followed up with a HCV Nucleic Acid Amplification test (673963). 6 2 sst 7 Age 1 - 5 years 0 - 67 6 - 7 years 0 - 110 8 - 10 years 0 - 185 11 - 12 years 0 - 201 13 - 14 years 0 - 318 15 - 16 years 39 - 481 17 - 19 years 40 - 491 >19 years 31 - 701 8 Adult Female: Follicular phase 12.5 - 166.0 Ovulation phase 85.8 - 498.0 Luteal phase 43.8 - 211.0 Postmenopausal <6.0 - 54.7 1st trimester 215.0 - >4300.0 Girls (1-10 years) 6.0 - 27.0 Gunnar ECLIA methodology Information released to FDA by different reagent manufactures has identified cross reactivity between Fulvestrant, a drug used in the treatment of metastatic breast cancer, and immunoassays; leading to falsely elevated estradiol results. Any patient known to be on a Fulvestrant regimen can be tested for Estradiol using [employer] assay "Estradiol, Sensitive (LC/MS) test number 196191" which does not exhibit Fulvestrant interference. 9 Follicular phase 2.4 - 12.6 Ovulation phase 14.0 - 95.6 Luteal phase 1.0 - 11.4 Postmenopausal 7.7 - 58.5 10 Follicular phase 3.5 - 12.5 Ovulation phase 4.7 - 21.5 Luteal phase 1.7 - 7.7 Postmenopausal 25.8 - 134.8 11 NEGATIVE FOR INTRAEPITHELIAL LESION AND MALIGNANCY. 12 Satisfactory for evaluation. Endocervical and/or squamous metaplastic cells (endocervical component) are present. 13 Z12.4 14 Ilir Ramirez, Skating Rink Manager (ASCP) 15 The Pap smear is a screening test designed to aid in the detection of premalignant and malignant conditions of the uterine cervix. It is not a diagnostic procedure and should not be used as the sole means of detecting cervical cancer. Both false-positive and false-negative reports do occur. 16 This liquid based ThinPrep(R) pap test was screened with the use of an image guided system. 17 The HPV DNA reflex criteria were not met with this specimen result therefore, no HPV testing was performed. 18 RESULTS VERIFIED BY REPEAT ANALYSIS 19 SRC:<Blank> 1URINE VACUTAI NER 20 Source of Specimen: <Blank> 1URINE VACUTAI 21 Escherichia coli Source of Specimen: <Blank> 1URINE VACUTAI Greater than 100,000 colony forming units per mL 22 Source of Specimen: <Blank> 1URINE VACUTAI S=Susceptible; I=Intermediate; R=Resistant P=Positive; N=Negative MICS are expressed in micrograms per mL Antibiotic RSLT#1 RSLT#2 RSLT#3 RSLT#4 Amoxicillin/Clavulanic Acid S Ampicillin S Cefepime S Ceftriaxone S Cefuroxime S Cephalothin I Ciprofloxacin S Ertapenem S Gentamicin S Imipenem S Levofloxacin S Nitrofurantoin S Piperacillin S Tetracycline S Tobramycin S Trimethoprim/Sulfa S 23 SRC:vag 1 affirm 24 Source of Specimen: vag 1 affirm 25 Source of Specimen: vag 1 affirm 26 Source of Specimen: vag 1 affirm Acceptable specimens for this test are male urethral swab, endocervical swab and liquid based pap specimens, vaginal swabs in APTIMA transports and first void urine. See online Directory of Services for test number for rectal and pharyngeal specimens. 27 Source of Specimen: vag 1 affirm 28 Source of Specimen: vag 1 affirm 29 Source of Specimen: vag 1 affirm 30 RUN DATE: 11/22/12 [facility] LAB LIVE PAGE 1 RUN TIME: [address] [place] [address] Specimen Inquiry Name: TAMMY MCKEERITIKA MCGHEE : [address]: Mike Lau MD Acct: [id number] Unit: [id number] AGE: 17 Location: [facility] Re11/19/12 SEX: F Status: DEP ER SPEC: [id number] DEREK: 11/19/12-1135 [facility] DR: Mike Lau MD REQ: [id number] RECD: 11/20/12-1059 STATUS: COMP JONASHR DR: Melissa Ruano MD _ SOURCE: THROAT SPDESC: ORDERED: Throat Beta Str Procedure Result Verified Site Throat Beta Strep Culture Final 11/22/12- 0857 ML Negative For Group A Beta Streptococcus END OF REPORT * ML=Testing performed at Main Lab DEPARTMENT OF PATHOLOGY, [address] [place] [address] Otto Calloway M.D. Director [facility] Permit #[id number] Males: < 5.0 miu/ml Non females < 5.0 miu/ml Approx gestational age approx HCG range 0-1 week < 5.0-50 1-2 weeks 50-500 2-3 weeks 100-5000 3-4 weeks 500-10,000 1-2 months 10,000-200,000 2-3 months 15,000-100,000 Please note: The intended use of this assay is the quantitative determination of HCG in human serum or plasma for the early detection of . These assays should not be used to diagnose any condition unrelated to . If an HCG level is inconsistent with, or unsupported by, clinical evidence, results should be confirmed by an alternate HCG method. 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 Praveena K59.01 Slow transit Office Kelly, SALESPERSON [employer]KS constipation R11.0 Nausea F41.1 Generalized anxiety disorder R23.3 Spontaneous ecchymoses N92.6 Irregular menstruation, unspecified Z23 Encounter for immunization Z13.89 Encounter for screening for other disorder Office Visit 09/01/2016 8:30a [facility] Office Praveena Kelly, SALESPERSON [employer]OOKS R11.0 Nausea K59.01 Slow transit constipation F41.9 Anxiety disorder, unspecified Office Visit 07/28/2016 Elvin Hairston, F41.1 Generalized anxiety 3:15p Office Afnp-C disorder Office Visit 01/07/2016 [facility] Maria Guadalupe Hairston, N77.1 Vaginitis, vulvitis 11:15a Office Afnp-C and vulvovaginitis in dis classd elswhr Office Visit 12/03/2015 Elvin Grissom R21 Rash and other 1:45p Office Kelly, [employer]ESPERSON [employer]KS nonspecific skin eruption Office Visit 11/19/2015 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 (general) (routine) w/o abn findings E28.9 Ovarian dysfunction, unspecified R73.02 Impaired glucose tolerance (oral) Office Visit 10/14/2015 11:30a [facility] Office Praveena N39.0 Urinary tract Kelly, [employer]ESP[employer]KS infection, site not specified Office Visit 10/07/2015 3:00p [facility] Office Dominique J30.89 Other allergic [place], Afnp-C rhinitis H69.93 Unspecified Eustachian tube disorder, bilateral Office Visit 09/17/2015 [facility] Praveena N39.0 Urinary tract 1:15p Office ALEJANDRA Mendoza infection, site not specified Office Visit 07/22/2015 [facility] Dominique B37.3 Candidiasis of 3:00p Office [place], vulva and vagina Afnp-C Office Visit 07/17/2015 [facility] Abena Ga, K59.09 Other constipation 10:00a Office [employer] Office Visit 06/02/2015 [facility] Rekha Lopez, Z30.09 Encounter for oth 2:30p Office M.D. general coun and advice on contraception Office Visit 05/15/2015 Main Office Rekha Lopez, 790.22 Impaired Glucose 5:00p M.DRupinder Tolerance Test (Oral) 704.00 Alopecia Unspec 256.9 Ovarian Dysfunction Other Unspec V77.91 Screening For Lipoid Disorders V04.81 Need For Prophylactic Vaccination & Inoculation/Influenza Office Visit 04/12/2013 9:50a [facility] Office Melissa Jacques 780.79 Malaise And Oskar Ruano Fatigue Other 784.0 Headache Office Visit 01/05/2013 1:00p [facility] Maria Guadalupe Villasenorigne, 251.2 Hypoglycemia Other Afnp-C Unspec 443.0 Raynauds Syndrome Office Visit 05/31/2012 2:15p Main Office Dominique 784.0 Headache [place], Afnp-C Office Visit 04/18/2012 3:00p Main Office Melissa Jacques 719.47 Pain Joint Ankle Oskar Ruano & Foot Office Visit 12/15/2011 1:30p Main Office Dominique 789.00 Pain Abdominal [place], Unspec Site Afnp-C Office Visit 11/12/2011 11:00a [facility] Melissa Jacques 704.00 Alopecia Unspec Oskar Ruano Office Visit 10/12/2011 3:20p Main Office Melissa Jacques 462 Pharyngitis Acute Oskar Ruano Office Visit 10/06/2011 3:00p [facility] Abena Ga, 339.10 Tension Type [employer] Headache, Unspecified Plan of Treatment Future Appointment(s):12/27/2018 8:30 am - ALEJANDRA Santos at [facility] [id number]/26/2018 - ALEJANDRA SantosF41.1 Generalized anxiety disorderNew Medication:Wellbutrin SR 100 mg - 1 by mouth every dayComments:Try Wellbutrin-XL , watch for side effects and be in touch with me If you don't tolerate this medication, we could reconsider the lamictal, it was a pretty good fit and doesn 't seem to be exactly correlated with hair lossFollow up:2 mtjuzzN73.9 Nonscarring hair loss, unspecifiedComments:I want you to look at fancy expensive wigsI don't have a horse in this race, but I do see the way the hair loss affects your mental health; I want you to consider alternatives and give yourself a chance to see the problem differently, with a possible klcsbbtaH69.0 Acute brlyfprdvZ37.3 Encounter for screening for infections with a predominantlyAllComments:~B_~U_Medication Management~b_~u_ Patient Understands medications he 's taking? Yes No Are there Barriers to Adherence? Yes No Has the patient been asked about herbal supplements and therapies, and OTC meds? Yes No As always, we strongly encourage a healthy diet and makingphysical activity a part of your every day life. If you have questions about how or where to start, please contact the office.
--- OUTSIDE RECORDS SUMMARY | 2018-11-20 20:04 | XMS REPORT | Continuity of Care Document ---
:1995 External Reference #:[id number] Author Name Félix Tubbs MD Address [address] [place] [address] Care Team Providers Name Role Phone Rekha Lopez MD Care Team Information Property Insurance Inspector Unavailable Rekha Lopez MD Primary Care Physician Unavailable Payers Date Identification Numbers Payment Provider Subscriber Effective: 2015 Policy Number: [id number] [employer] PayID: [id number] [address] [place] [address] Effective: 2014 Policy Number: [id number] [facility] [employer] Expires: 2015 PayID: [id number] [address] [address] [place] [address] Effective: 2014 Policy Number: [id number] [facility] [employer] Expires: 2015 PayID: [id number] [facility] [address] [place] [address] Effective: 2014 Policy Number: [id number] [facility] [employer] Expires: 2015 PayID: [id number] [address] [place] [address] Effective: 2014 Policy Number: [id number] [facility] [employer] Expires: 2015 PayID: [id number] [place] [address] [place] [address] Advance Directives Description No Information Available Problems Date Description Provider Status Onset: 09/20/2017 Chronic allergic conjunctivitis Yodit Urrutia Active RPA-C Onset: 08/05/2016 Mild intermittent asthma Yodit Urrutia Active RPA-C Onset: 10/03/2015 Cow's milk protein sensitivity Yodit Odellstermacher, Active RPA-C Onset: 10/03/2015 Allergic urticaria Yodit Odellstermacher, Active RPA-C Onset: 07/11/2015 Moderate persistent asthma, Yodit Robisonacher, Active uncomplicated RPA-C Onset: 07/11/2015 Idiopathic urticaria Yodit Samsonermacher, Active RPA-C Onset: 07/11/2015 Posterior rhinorrhea Yodit Samsonermacher, Active RPA-C Onset: 07/11/2015 Allergic rhinitis Yodit Samsonermacher, Active RPA-C Onset: 07/11/2015 Allergic rhinitis due to pollen Yodit Urrutia, Active RPA-C Family History Description No Information Available Social History Type Date Description Comments Sex Unknown Smoke-Free Home is smoke-free Pets Rabbit Tobacco Use Start: Unknown Never Smoked Cigarettes Tobacco Use Start: Unknown Patient has never smoked Smoking Status Reviewed: 10/24/18 Patient has never smoked Allergies, Adverse Reactions, Alerts Description No Known Drug Allergies Medications Medication Date Status Form Strength Qnty SIG Indications Ordering Provider [facility] Allergy 10/24 Active Capsules 10mg 30cap take 1 s capsule Alondra Tubbs MD by oral route as needed Singulair 10/21 Active Tablets 10mg 90tab take one s tablet by Alondra Tubbs MD mouth daily in the evening. Epipen 2-Vish 08/08 Active Solution 0.3mg/0.3 2unit as Auto-Inject ML s directed Alondra Tubbs MD Xopenex HFA 07/11 Active Aerosol 45mcg/Act 1inha inhale 2 J45.40 ler puffs Alondra Tubbs MD every 4 hours as needed Spironolactone Active Tablets 100mg Unknown /0000 Mirena (52 MG) Active IUD 20mcg/24H Unknown /0000 R Doxepin HCL Active Capsules 10mg 1 by Unknown /0000 mouth every day at night Pataday 09/20 Hx Solution 0.2% 1bott Instill H10.45 le one drop Alondra Tubbs MD - into both 10/24 eyes daily as needed. Advair HFA 10/21 Hx [...] Spironolactone Hx Tablets 100mg 2 by Unknown /0000 mouth - every day 01/28 Xyzal Hx Tablets 5mg 30tab 1 tab by oph / s mouth Alondra Tubbs MD - every day 10/21 as needed Singulair Hx Tablets 10mg 30tab 10mg by Christopher / s mouth Alondra Tubbs MD - daily at 10/21 bedtime Zonisamide Hx Capsules 100mg Unknown /0000 - 09/19 Metformin HCL Hx Tablets 500mg Unknown /0000 - 10/24 Nuvaring /00 Hx Ring 0.12-0.01 Unknown /0000 5mg/24HR - 09/20 Maxalt Hx Tablets 5mg prn Unknown /0000 - 01/28 Optivar Hx Solution 0.05% 1 drop Unknown /0000 both eyes - twice a 01/28 day needed Ventolin HFA Hx Aerosol 108(90Bas inhale 2 Unknown /0000 e) puffs by - mcg/Act inhalatio 08/05 n every 4 hours as needed for 99 days Alrex / Hx Suspension 0.2% Unknown /0000 - 08/05 Finasteride 00/00 Hx Unknown /0000 - 09/19 Topiramate /00 Hx Tablets 100mg Unknown /0000 - 10/24 Sertraline HCL 00 Hx Tablets 100mg Take 1 Unknown /0000 Tablet By - Mouth 10/24 Every Day Medications Administered in Office Medication Date [...] Information Available Procedures Date Code Description Status 10/24/2018 57593 Nitric Oxide Gas Determination Completed 10/24/2018 05199 Bronchodilation Responsiveness Spirometry Pre/Post Completed Bronchodil Adm 09/20/2017 49658 Nitric Oxide Gas Determination Completed 09/20/2017 88964 Bronchodilation Responsiveness Spirometry Pre/Post Completed Bronchodil Adm 08/05/2016 19230 Bronchodilation Responsiveness Spirometry Pre/Post Completed Bronchodil Adm 10/03/2015 78876 Chemotherpy Admin Subcutaneous/Im Non-Hormonal Completed Anti-Neoplastic 10/03/2015 33944 Chemotherpy Admin Subcutaneous/Im Non-Hormonal Completed Anti-Neoplastic 10/03/2015 12141 Spirometry Completed 09/05/2015 06149 Chemotherpy Admin Subcutaneous/Im Non-Hormonal Completed Anti-Neoplastic 09/05/2015 32637 Chemotherpy Admin Subcutaneous/Im Non-Hormonal Completed Anti-Neoplastic 09/05/2015 43378 Spirometry Completed 09/05/2015 55096 Spirometry Completed 08/08/2015 70388 Chemotherpy Admin Subcutaneous/Im Non-Hormonal Completed Anti-Neoplastic 08/08/2015 05608 Chemotherpy Admin Subcutaneous/Im Non-Hormonal Completed Anti-Neoplastic 08/08/2015 62947 Spirometry Completed 07/11/2015 28249 Bronchodilation Responsiveness Spirometry Pre/Post Completed Bronchodil Adm Encounters Type Date Location Provider Dx Diagnosis Office Visit 10/24/2018 3:30p MONSE Briseno J30.1 Allergic rhinitis due to pollen J30.89 Other allergic rhinitis J45.20 Mild intermittent asthma, uncomplicated Office Visit 09/20/2017 1:00p Romaine Urrutia J30.1 Allergic RPA-C rhinitis due to pollen J30.89 Other allergic rhinitis J45.20 Mild intermittent asthma, uncomplicated H10.45 Other chronic allergic conjunctivitis Office Visit 08/05/2016 9:00a [place] Yodit S. J45.20 Mild intermittent Fenstermacher, RPA-C asthma, uncomplicated J30.1 Allergic rhinitis due to pollen J30.89 Other allergic rhinitis Office Visit 01/29/2016 2:15p [place] Yodit S. Fenstermacher, J30.1 Allergic RPA-C rhinitis due to pollen J30.89 Other allergic rhinitis L50.0 Allergic urticaria J45.40 Moderate persistent asthma, uncomplicated Office Visit 10/03/2015 1:30p [place] Yodit S. Fenstermacher, J30.1 Allergic rhinitis RPA-C due to pollen J30.89 Other allergic rhinitis R09.82 Postnasal drip L50.0 Allergic urticaria J45.40 Moderate persistent asthma, uncomplicated Office Visit 07/11/2015 10:45a [place] Yodit S. Fenstermacher, J30.1 Allergic rhinitis RPA-C due to pollen J30.89 Other allergic rhinitis J45.40 Moderate persistent asthma, uncomplicated R09.82 Postnasal drip L50.1 Idiopathic urticaria Plan of Treatment 10/24/2018 - MONSE XavierJ30.1 Allergic rhinitis due to pollenComments:Patient 's PFT is within normal limits and exhaled nitric oxide is normal at 8 ppb. Patient patient to continue Xopenex for breakthrough chest symptoms. Patient to continue Singulair as prescribed. Patient to continue Zyrtec for breakthrough nasal symptoms. Saline nasal rinse and HEPA air filter may help decrease allergens.Follow up:one year, PFT and NIOX jpoawC94.89 Other allergic leolpocaO38.20 Mild intermittent asthma, uncomplicated
[2018-11-20 20:15] VITALS: BP 120/73
--- NOTE | 2018-11-20 20:26 | UC ---
Throat Pain/Nasal Magdiel HPI - HPI Summary HPI Summary: Patient has had cold symptoms for approximately 8 or 9 days and now with sinus congestion and sinus pain. - History of Current Complaint Chief Complaint: UCRespiratory Stated Complaint: SINUS Time Seen by Provider: 11/20/18 20:10 Hx Obtained From: Patient Hx Last Menstrual Period: IUD ?: No Onset/Duration: Gradual Onset Severity: Moderate Pain Intensity: 5 Associated Signs & Symptoms: Positive: Sinus Discomfort, Nasal Discharge - Allergies/Home Medications Allergies/Adverse Reactions: Allergies Allergy/AdvReac Type Severity Reaction Status Date / Time No Known Allergies Allergy Verified 11/20/18 20:09 Home Medications: Home Medications Doxepin HCl [Silenor] 10 mg PO QPM 11/20/18 [History Confirmed 11/20/18] Levocetirizine Dihydrochloride [Xyzal] 1 tab DAILY 11/20/18 [History Confirmed 11/20/18] buPROPion TAB* [Wellbutrin TAB*] 1 tab DAILY 11/20/18 [History Confirmed ] PMH/Surg Hx/FS Hx/Imm Hx Previously Healthy: Yes - Surgical History Surgical History: Yes Surgery Procedure, Year, and Place: TUBES IN EARS CHILD; POLYP REMOVED FROM THROAT-NO CLIPS, wisdom teeth extraction - Family History Known Family History: Positive: Cardiac Disease, Hypertension - Social History Alcohol Use: Occasionally Substance Use Type: None Smoking Status (MU): Never Smoked Tobacco Review of Systems All Other Systems Reviewed And Are Negative: Yes ENT: Positive: Nasal Discharge, Sinus Congestion, Sinus Pain/Tenderness - Sleep pain over the maxillary and frontal sinuses. Respiratory: Positive: Cough - Productive cough. Is Patient Immunocompromised?: No Physical Exam Triage Information Reviewed: Yes Appearance: Well-Appearing, No Pain Distress, Well-Nourished Vital Signs: Initial Vital Signs Temp 98 F 11/20/18 20:12 Pulse 97 11/20/18 20:12 Resp 16 11/20/18 20:12 BP 120/73 11/20/18 20:12 Pulse Ox 100 11/20/18 20:12 Vital Signs Reviewed: Yes Eye Exam: Normal ENT: Positive: Nasal congestion, Nasal drainage - Yellowish green postnasal drainage, turbinates inflamed with yellowish green purulent nasal coryza. Maxillary sinuses tender on palpation bilaterally., Sinus tenderness, Uvula midline. Negative: Tonsillar swelling, Tonsillar exudate, Trismus, Muffled voice Neck exam: Normal Respiratory Exam: Normal Cardiovascular Exam: Normal Abdominal Exam: Normal Bowel Sounds: Positive: Present Musculoskeletal Exam: Normal Neurological Exam: Normal Psychological Exam: Normal Skin Exam: Normal Throat Pain/Nasal Course/Dx - Course Course Of Treatment: She has been comfortable here. Her symptoms are consistent with sinusitis. - Differential Dx/Diagnosis Differential Diagnosis/HQI/PQRI: Sinusitis Provider Diagnosis: Sinusitis Discharge - Sign-Out/Discharge Documenting (check all that apply): Patient Departure All imaging exams completed and their final reports reviewed: No Studies - Discharge Plan Condition: Good Disposition: HOME Prescriptions: Amoxicillin PO (*) [Amoxicillin 875 MG (*)] 875 mg PO BID 10 Days #20 tab Patient Education Materials: Sinusitis (ED) Referrals: Rekha Lopez MD [Primary Care Provider] - Additional Instructions: Increase fluids. Pnyt-suy-kmlpfzl cold medication as directed. Definite follow up with your primary care provider if no improvement in 4-5 days. - Billing Disposition and Condition Condition: GOOD Disposition: Home
== END 2018-11-20 20:28 | disposition home or self-care (01) ==
LOC: UCCORT 18:34
DX: J32.9 Chronic sinusitis, unspecified (principal)
CPT/HCPCS: 99212; G0463